=== PATIENT | male | born 1995 | race African-American/Black ===

== ENCOUNTER 2022-07-27 12:17 | Emergency (ER) | payer OTHER, SELFPAY ==
--- NOTE | 2022-07-27 12:19 | ED.DENTAL ---
HPI - Dental/Oral General Chief complaint: Dental/Oral Stated complaint: Dental Pain Time Seen by Provider: 07/27/22 12:19 Source: patient Mode of arrival: ambulatory Limitations: no limitations History of Present Illness HPI Narrative: Aleksey is a 26-year-old male patient presenting to clinic today with complaints of left lower dental pain x4 days. He reports no known fever or chills. Has been taking ibuprofen as needed for pain. Related Data Allergies Allergy/AdvReac Type Severity Reaction Status Date / Time No Known Allergies Allergy Verified 07/27/22 12:28 Review of Systems Review of Systems: Pertinent positives per HPI. Patient denies any fever, chills, rash, headache, visual changes, dizziness, cough, runny nose, sore throat, shortness of breath, chest pain, palpitations, nausea, vomiting, diarrhea, constipation, abdominal pain, or any urinary issues. PMFSH Comments At the time of my signature, I reviewed and agree with the nursing past medical, surgical, social, and family history. There is no relevant family history pertinent to the patient complaint. Exam Narrative: General: Well-developed, well nourished, in no apparent distress Head: Normocephalic, atraumatic Eyes: Pupils equally round and reactive to light bilaterally, EOM intact, sclera and conjunctive clear, no discharge, lids normal Ears: TMs intact and clear, ear canals clear, no drainage, grossly hearing normal. Nose: Nares patent, no discharge, no inflammation, no sinus tenderness. Mouth: Oropharynx without lesions or masses, poor dentition, MMM. Dental infection to number 17 and 18 with dental decay Neck: Supple, trachea midline, no enlargement of anterior or posterior cervical nodes, no thyroid masses or goiter palpable. Cardio: Regular rate and rhythm, s1 and s2 normal, no murmur appreciated. Resp: Clear to auscultation bilaterally anteriorly and posteriorly, no rhonchi, rales, wheezing or rubs Course Course Emergency Course: Portions of this record may have been created with voice recognition software. Level of Care: Express Care Visit Vital Signs Vital signs: Vital Signs Temperature 37.2 C 07/27/22 12:30 Pulse Rate 80 07/27/22 12:30 Respiratory Rate 16 07/27/22 12:30 Blood Pressure 123/81 07/27/22 12:30 Pulse Oximetry 99 07/27/22 12:30 Oxygen Delivery Room Air 07/27/22 12:30 Temperature 37.2 C 07/27/22 12:30 Pulse Rate 80 07/27/22 12:30 Respiratory Rate 16 07/27/22 12:30 Blood Pressure 123/81 07/27/22 12:30 Pulse Oximetry 99 07/27/22 12:30 Oxygen Delivery Room Air 07/27/22 12:30 Vital signs reviewed MDM - Dental/Oral MDM Narrative Medical decision making narrative: At the time of visit patient is resting comfortably on exam table. I suspect patient has to caries with dental infection. Prescription for amoxicillin was sent to the pharmacy supportive measures were discussed with the patient he voiced understanding of discharge instructions and agrees to treatment plan. Differential Diagnosis Differential diagnosis: Likely gingival abscess, dental caries, toothache, dental abscess and fracture of tooth Discharge Plan Discharge Clinical Impression: Dental caries, Dental infection Patient Disposition: Home, Self-Care Condition: Stable Instructions: Antibiotic Form, Toothache (ED) Additional Instructions: Take amoxicillin as prescribed Take Tylenol/ibuprofen as needed for pain Follow-up with your dentist as soon as possible Go to the emergency room if symptoms worsen-increase in pain, increase in swelling, high fever not controlled by Tylenol or Motrin, Prescriptions: New amoxicillin 500 mg tablet 500 mg PO Q8H 10 Days Qty: 30 0RF Follow-up/Referrals: UNKNOWN,DOCTOR [Non-Staff] - Time of Disposition: 12:38 Quality NIHSS Nursing Documentation ED NIHSS nursing documentation: reviewed/agree
[2022-07-27 12:30] VITALS: BP 123/81; PULSE 80; RESP 16; TEMP 37.2; O2SAT 99
== END 2022-07-27 12:42 | disposition home or self-care (01) ==
LOC: EXPCOLL 12:24
PROVIDERS: Emergency Provider Nurse Practitioner Family
DX: K04.7 Periapical abscess without sinus (principal); K02.9 Dental caries, unspecified
CPT/HCPCS: 99203; G0463